=== PATIENT | male | born 1985 | race Caucasian/White ===

== ENCOUNTER 2016-11-06 13:34 | Emergency (ER) | payer OTHER ==
[2016-11-06] MEDS ORDERED: TORAdol 30 mg Injection IM ONE (13:54)
[2016-11-06 13:56] VITALS: O2SAT 98
[2016-11-06] MEDS ORDERED: TORAdol 30 mg Injection ONE (14:01)
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
--- NOTE | 2016-11-06 14:26 | XRAY ---
Indication: Chest pain. Comparison: None PA/lateral chest demonstrates normal heart, lungs, and bony thorax.
[2016-11-06 14:44] VITALS: BP 131/69; PULSE 68
== END 2016-11-06 14:48 | disposition home or self-care (01) ==
LOC: ED 13:34
DX: R07.89 Other chest pain (principal); Y04.0XXA Assault by unarmed brawl or fight, initial encounter
CPT/HCPCS: 71020; 96372; 96374; 99284; J1885